=== PATIENT | male | born 1995 | race Caucasian/White ===

== ENCOUNTER 2024-02-28 16:22 | Emergency (ER) | payer BC, SELFPAY ==
[2024-02-28 16:28] VITALS: BP 133/61; PULSE 88; RESP 18; TEMP 36.8; O2SAT 97
--- NOTE | 2024-02-28 16:36 | ED.GENADULT ---
HPI - General Adult General Chief complaint: Headache Stated complaint: migraine/swollen face Time Seen by Provider: 02/28/24 16:36 Source: patient Mode of arrival: ambulatory Limitations: no limitations History of Present Illness HPI narrative: 28 yo M presents with c/o swelling to L side of face since waking up this AM. States yesterday he had headache that began while at work around 5p. Came home around 6:30p and took 800mg ibuprofen. had little change to headache so took tylenol and then headache resolved. while pt had headache and some photophobia but denies N/V, vision change. Woke up this AM and felt like he had swelling around L eye and to cheek. Has improved throughout the day. Had mild congestion/runny nose. Otherwise feels fine. States im 29 and havent seen a doctor in 10 years. figured i needed to get some labs checked . Related Data Allergies Allergy/AdvReac Type Severity Reaction Status Date / Time amoxicillin Allergy Unknown Verified 05/16/19 16:02 Review of Systems Review of Systems: CONSTITUTIONAL: Denies fever, chills, or sweats. EYES: Denies visual changes, redness, or discharge. ENT: Reports rhinorrhea, congestion. Denies sore throat, or otalgia. CARDIOVASCULAR: Denies chest pain, palpitations, or edema. RESPIRATORY: Denies cough or dyspnea. GASTROINTESTINAL: Denies abdominal pain, nausea, vomiting, or diarrhea. GENITOURINARY: Denies dysuria or hematuria. SKIN: Denies rash or itching. MUSCULOSKELETAL: Denies back pain, joint pain, or myalgia. NEUROLOGIC: reports headache. Denies numbness, or weakness. PSYCHIATRIC: Denies anxiety or depression. All other systems reviewed are negative, except as documented in HPI. PMFSH Comments At time of signature, agree with nursing past medical, surgical, social and family history. There is no relevant family history pertinent to the presenting complaint. Exam Narrative: GENERAL: This is a well-nourished, well-developed patient, in no apparent distress. HEAD: normocephalic, atraumatic. EYES: PERRL. Sclera clear/white. Vision is grossly intact. EARS: External ears normal, auditory canals clear and without drainage, TMs normal without perforation. Hearing grossly intact. NOSE: External nose normal with clear nasal drainage, mild congestion with erythema to bilateral nares THROAT: Mucous membranes moist, posterior pharynx clear. NECK: Neck supple, non-tender without lymphadenopathy, masses or thyromegaly. CARDIOVASCULAR: Regular rate and rhythm without murmurs, gallops, or rubs. RESPIRATORY: Clear to auscultation. Breath sounds equal bilaterally. No wheezes, rales, or rhonchi. SKIN: warm, Dry, intact with no suspicious lesions or rash, good texture and turgor. NEURO: awake, alert, and oriented to person, place and time. There were no obvious focal neurologic abnormalities. EXTREMITIES: No joint tenderness, effusion, or edema noted. Course Course Level of Care: Express Care Visit Vital Signs Vital signs: Vital Signs Temperature 36.8 C 02/28/24 16:28 Pulse Rate 88 02/28/24 16:28 Respiratory Rate 18 02/28/24 16:28 Blood Pressure 133/61 02/28/24 16:28 Pulse Oximetry 97 02/28/24 16:28 Oxygen Delivery Room Air 02/28/24 16:28 Temperature 36.8 C 02/28/24 16:28 Pulse Rate 88 02/28/24 16:28 Respiratory Rate 18 02/28/24 16:28 Blood Pressure 133/61 02/28/24 16:28 Pulse Oximetry 97 02/28/24 16:28 Oxygen Delivery Room Air 02/28/24 16:28 reviewed Medical Decision Making MDM Narrative Medical decision making narrative: headache resolved. Patient rates pain 0/ 10. No significant swelling noted to left side of face. No facial droop. No neuro deficits. Will treat with prednisone, allergy meds for Acute sinusitis. Recommend patient go to ER for any worsening of symptoms. Patient is aware of diagnosis, understands and agrees to treatment plan. Anticipatory guidance given. Patient agrees to follow-u
== END 2024-02-28 16:57 | disposition home or self-care (01) ==
PROVIDERS: Emergency Provider Nurse Practitioner Family
DX: J01.90 Acute sinusitis, unspecified (principal)
CPT/HCPCS: 99213; G0463